=== PATIENT | male | born 1950 | race Caucasian/White ===

== ENCOUNTER 2016-08-20 19:37 | Emergency (ER) | payer OTHER ==
[~2016-08-20] VITALS: Ht 185.4 cm; Wt 70.3 kg
[2016-08-20 19:40] VITALS: BP_SYST 147
[2016-08-20] MEDS ORDERED: BACITRACIN 1 GM OINT TP ONE (21:00)
[2016-08-20] MEDS ORDERED: metFORMIN HCL 500 MG TABLET PO ONE (21:00)
[2016-08-20] MEDS ORDERED: VERAPAMIL HCL 120 MG TABLET.SA PO SCH (21:00)
[2016-08-20] MEDS ORDERED: VERAPAMIL HCL 120 MG TABLET.SA PO ONE (21:55)
[2016-08-20 22:05] VITALS: BP_SYST 128
== END 2016-08-20 22:05 ==
LOC: SED 19:37
DX: S80.812A Abrasion, left lower leg, initial encounter (principal); E11.9 Type 2 diabetes mellitus without complications; I10 Essential (primary) hypertension; Z02.89 Encounter for other administrative examinations; Y04.0XXA Assault by unarmed brawl or fight, initial encounter; Y93.89 Activity, other specified; Y99.8 Other external cause status; Y92.89 Other specified places as the place of occurrence of the external cause
CPT/HCPCS: 99284